=== PATIENT | male | born 1975 | race Caucasian/White ===

== ENCOUNTER 2020-12-25 17:46 | Inpatient (IN) | payer OTHER ==
[~2020-12-25 17:46] MED LIST: Iopamidol 370 76% 100 ML VIAL ONE
[2020-12-25] MEDS ORDERED: Boostrix 0.5 ML (Tdap) VIAL ONE (17:49)
[2020-12-25] MEDS ORDERED: Ondansetron PF 4 MG/2 ML Vial ONE (18:28)
[2020-12-25] MEDS ORDERED: Morphine 4 MG/ML VIAL ONE (18:28)
[2020-12-25 18:30] LABS: #Basophils 0.1 thou/uL (0.0-0.2); #Eosinphils 0.2 thou/uL (0.0-0.7); #Lymphocytes 4.6 thou/uL (1.20-3.40); #Monocytes 0.5 thou/uL (0.11-0.59); #Neutrophils 5.7 thou/uL (1.40-6.50); %Basophils 0.9 % (0.0-1.0); %Eosinophils 1.9 % (0.0-10.0); %Lymphocytes 41.9 % (21.0-51.0); %Monocytes 4.1 % (0.0-10.0); %Neutrophils 51.3 % (42.0-75.0); Mean Corpuscular HGB CONC 33.7 g/dL (32.0-36.0); Mean Corpuscular Hemoglobin 33.3 pg (27.0-31.0); Mean Corpuscular Volume 98.7 fL (78.0-98.0); Mean Platelet Volume 8.2 fL (7.4-10.4); Platelet Count 236 thou/uL (130-400); RBC Distribution Width 11.1 % (11.5-14.5); Red Blood Cell (RBC) Count 3.92 mill/uL (4.70-6.10)
[2020-12-25 18:35] LABS: PTT 28.9 sec (22.9-36.1); Prothrombin Time 13.1 sec (12.0-14.7)
[2020-12-25 18:49] LABS: ALT (SGPT) 116 U/L (8-55); AST (SGOT) 160 U/L (5-34); Albumin 3.5 g/dL (3.5-5.0); Alcohol 319 mg/dL (Less than 10); Alkaline Phosphatase 138 U/L (40-110); Anion Gap 23 mmol/L (10-20); BUN (Urea Nitrogen) 8 mg/dL (8.9-20.6); Bilirubin, Total 0.4 mg/dL (0.2-1.2); Calc. Creatinine Clearance 0 mL/min (70-130); Calcium 8.3 mg/dL (7.8-10.44); Carbon Dioxide 20 mmol/L (22-29); Chloride 102 mmol/L (98-107); Glucose 161 mg/dL (70-105); Potassium 3.5 mmol/L (3.5-5.1); Protein, Total 7.5 g/dL (6.0-8.3); Sodium 141 mmol/L (136-145)
[2020-12-25 20:12] LABS: Magnesium 1.7 mg/dL (1.6-2.6); Phosphorus 4.1 mg/dL (2.3-4.7)
[2020-12-25] MEDS ORDERED: CEFAZOLIN 2 GM in Premix Bag 1 BAG IVPB SCH (20:30)
[2020-12-25] MEDS ORDERED: Neomycin-Polymyxin 1 ML AMP ONE ×2 (20:51→21:30)
[2020-12-25] MEDS ORDERED: Dextrose 5% in Water 1,000 ML IV PRN (21:18)
[2020-12-25] MEDS ORDERED: Dextrose 50% Abboject 50 ML SYRINGE SLOW IVP PRN (21:18)
[2020-12-25] MEDS ORDERED: hydrALAZINE 20 MG/ML VIAL SLOW IVP PRN (21:18)
[2020-12-25] MEDS ORDERED: Ondansetron PF 4 MG/2 ML Vial IVP PRN (21:18)
[2020-12-25] MEDS ORDERED: Fentanyl 100 MCG/2 ML VIAL ONE (21:43)
[2020-12-25 21:52] LABS: SARS-CoV-2 NAA Rapid Test Not Detected (NotDetected)
[2020-12-25] MEDS ORDERED: PROPOFOL 200 MG/20 ML VIAL ONE (21:52)
[2020-12-25] MEDS ORDERED: Succinylcholine 200 MG/10 ml SYRINGE FS ONE (21:52)
[2020-12-25] MEDS ORDERED: Rocuronium Bromide 10 MG/ML (10ML VIAL) ONE (21:52)
[2020-12-25] MEDS ORDERED: Lidocaine 1% PF 5 ML VIAL ONE (21:52)
[2020-12-25] MEDS ORDERED: traMADol HCl 50 MG TAB PO PRN (21:55)
[2020-12-25] MEDS ORDERED: HYDROmorphone 2 MG/ML VIAL ONE (22:26)
[2020-12-25] MEDS ORDERED: SUGAMMADEX SODIUM 200 MG/2 ML VIAL ONE (22:28)
[2020-12-25] MEDS ORDERED: Naloxone HCl 0.4 mg/ml Vial ONE (23:00)
[2020-12-25] MEDS ORDERED: Meperidine HCl/PF 25 MG/ML VIAL ONE (23:21)
[2020-12-26] MEDS ORDERED: Magnesium 2 GM/50 ML 2 GM in Premix Bag 1 BAG IVPB SCH (00:15)
[2020-12-26] MEDS: Oxazepam 10 MG CAP PO SCH ×6 (00:52→20:06)
[2020-12-26] MEDS: Acetaminophen 325 MG TAB PO SCH ×5 (00:53→23:20)
[2020-12-26] MEDS: Potassium Chloride 20 MEQ in Premix Bag 1 BAG IVPB SCH ×2 (00:56→03:46)
[2020-12-26] MEDS: traMADol HCl 50 MG TAB PO PRN ×2 (01:02→08:05)
[2020-12-26] MEDS: CEFAZOLIN 2 GM in Premix Bag 1 BAG IVPB SCH ×3 (01:03→18:13)
[2020-12-26] MEDS: Sodium Chloride 0.9% 1,000 ML IV SCH ×3 (01:05→15:16)
[2020-12-26 01:52] VITALS: BMI 32.6
[2020-12-26] MEDS: Morphine 2 MG/ML VIAL SLOW IVP PRN ×2 (04:01→06:16)
[2020-12-26 04:39] LABS: Amphetamine Not Detected (NotDetected); Barbiturates Screen Not Detected (NotDetected); Benzodiazepine Screen Detected (NotDetected); Cocaine Metabolite Screen Not Detected (NotDetected); Medtox Control Line Valid? VALID (VALID); Medtox Reader # READER 4; Methadone Not Detected (NotDetected); Methamphetamine Not Detected (NotDetected); Opiate Screen Detected (NotDetected); Oxycodone Screen Not Detected (NotDetected); Phencyclidine (PCP) Not Detected (NotDetected); THC/Cannabinoid Screen Not Detected (NotDetected); Tricyclic Screen Not Detected (NotDetected)
[2020-12-26] MEDS: Ibuprofen 600 MG TAB PO SCH ×3 (05:31→21:11)
[2020-12-26 05:49] LABS: #Lymphocytes 1.4 thou/uL (1.20-3.40); #Monocytes 0.9 thou/uL (0.11-0.59); %Basophils 0.4 % (0.0-1.0); %Eosinophils 0.3 % (0.0-10.0); %Lymphocytes 13.8 % (21.0-51.0); %Monocytes 8.6 % (0.0-10.0); %Neutrophils 76.9 % (42.0-75.0); Hemoglobin 10.1 g/dL (14.0-18.0); Mean Corpuscular Hemoglobin 33.3 pg (27.0-31.0); Platelet Count 185 thou/uL (130-400); RBC Distribution Width 11.3 % (11.5-14.5); Red Blood Cell (RBC) Count 3.04 mill/uL (4.70-6.10); White Blood Cell (WBC) Count 10.4 thou/uL (4.8-10.8)
[2020-12-26 05:59] LABS: Phosphorus 4.1 mg/dL (2.3-4.7)
[2020-12-26 06:01] LABS: Anion Gap 21 mmol/L (10-20); BUN (Urea Nitrogen) 7 mg/dL (8.9-20.6); Calc. Creatinine Clearance 168 mL/min (70-130); Calcium 7.6 mg/dL (7.8-10.44); Carbon Dioxide 19 mmol/L (22-29); Chloride 99 mmol/L (98-107); Glucose 161 mg/dL (70-105); Potassium 4.7 mmol/L (3.5-5.1); Sodium 134 mmol/L (136-145)
[2020-12-26] MEDS: Polyethylene Glycol 3350 17 GM Packet PO SCH (08:52)
[2020-12-26] MEDS: Senokot S 8.6-50 MG TAB PO SCH ×2 (08:54→20:06)
[2020-12-26] MEDS: Famotidine/PF 20 mg/2ml Vial SLOW IVP SCH ×2 (08:54→20:06)
[2020-12-26] MEDS ORDERED: TETANUS AND DIPHTHERIA TOX/PF 0.5 ML DISP.SYRIN IM ONE (09:00)
[2020-12-26] MEDS ORDERED: FLU VACC QS2020-21(6MOS UP)/PF 60 MCG/0.5 ML SYRINGE IM ONE (09:00)
[2020-12-26] MEDS: Folic Acid 1 MG TAB PO SCH (10:09)
[2020-12-26] MEDS: Thiamine 100 MG TAB PO SCH (10:09)
[2020-12-26] MEDS ORDERED: traMADol HCl 50 MG TAB PO SCH (12:00)
[2020-12-26] MEDS: cloNIDine 0.1 MG TAB PO SCH ×3 (12:53→23:20)
[2020-12-26] MEDS: traMADol HCl 50 MG TAB PO SCH ×2 (14:13→20:04)
[2020-12-26] MEDS: Lactated Ringer's 1,000 ML IV SCH (20:07)
[2020-12-27] MEDS: traMADol HCl 50 MG TAB PO SCH ×3 (02:55→15:03)
[2020-12-27] MEDS: Oxazepam 10 MG CAP PO SCH ×4 (02:56→20:25)
[2020-12-27] MEDS: CEFAZOLIN 2 GM in Premix Bag 1 BAG IVPB SCH ×4 (02:56→23:42)
[2020-12-27] MEDS: Lactated Ringer's 1,000 ML IV SCH ×3 (02:56→23:47)
[2020-12-27] MEDS: Acetaminophen 325 MG TAB PO SCH ×3 (05:17→17:44)
[2020-12-27] MEDS: Ibuprofen 600 MG TAB PO SCH ×2 (05:17→15:03)
[2020-12-27] MEDS: cloNIDine 0.1 MG TAB PO SCH ×4 (05:19→23:42)
[2020-12-27] MEDS ORDERED: Midazolam HCl 2 mg/2 ml Vial ONE ×2 (08:47→09:09)
[2020-12-27] MEDS ORDERED: Fentanyl 250 MCG/5 ML VIAL ONE (08:47)
[2020-12-27] MEDS ORDERED: Lidocaine 2% Jelly 5 ML TUBE ONE (08:48)
[2020-12-27] MEDS ORDERED: Ondansetron PF 4 MG/2 ML Vial ONE (09:21)
[2020-12-27] MEDS ORDERED: Lidocaine 1% PF 5 ML VIAL ONE (09:21)
[2020-12-27] MEDS ORDERED: Glycopyrrolate 0.2 MG/ML 5 ML SYRINGE ONE (09:21)
[2020-12-27] MEDS ORDERED: Dexamethasone 20 MG/5 ML VIAL ONE (09:21)
[2020-12-27] MEDS ORDERED: PROPOFOL 200 MG/20 ML VIAL ONE (09:21)
[2020-12-27] MEDS ORDERED: PHENYLEPHRINE-NS 100 MCG/ML 10 ML SYRINGE ONE ×2 (09:21→11:15)
[2020-12-27] MEDS ORDERED: Rocuronium Bromide 10 MG/ML (10ML VIAL) ONE (09:21)
[2020-12-27] MEDS: Famotidine/PF 20 mg/2ml Vial SLOW IVP SCH ×2 (10:09→20:25)
[2020-12-27] MEDS: Folic Acid 1 MG TAB PO SCH (10:09)
[2020-12-27] MEDS: Multivit, Therapeutic 1 TAB PO SCH (10:09)
[2020-12-27] MEDS: Thiamine 100 MG TAB PO SCH (10:10)
[2020-12-27] MEDS: Polyethylene Glycol 3350 17 GM Packet PO SCH (10:10)
[2020-12-27] MEDS: Senokot S 8.6-50 MG TAB PO SCH ×2 (10:10→20:25)
[2020-12-27 11:11] LABS: Hemoglobin 8.3 g/dL (14.0-18.0)
[2020-12-27] MEDS ORDERED: Promethazine HCl 25 MG/ML VIAL SLOW IVP PRN (11:25)
[2020-12-27] MEDS ORDERED: Promethazine HCl 25 MG/ML VIAL IM PRN (11:25)
[2020-12-27] MEDS ORDERED: Ondansetron HCl/PF 4 MG/2 ML Vial IVP PRN (11:25)
[2020-12-27] MEDS ORDERED: Ketorolac Tromethamine 30 MG/ML VIAL IVP PRN (11:25)
[2020-12-27] MEDS ORDERED: HYDROmorphone 2 MG/ML VIAL SLOW IVP PRN (11:25)
[2020-12-27] MEDS ORDERED: HYDROmorphone 2 MG/ML VIAL ONE (13:27)
[2020-12-27] MEDS ORDERED: Promethazine HCl 25 MG/ML VIAL ONE (13:34)
[2020-12-27] MEDS ORDERED: Fentanyl 100 MCG/2 ML VIAL ONE (14:59)
[2020-12-27] MEDS: Morphine 2 MG/ML VIAL SLOW IVP PRN (16:29)
[2020-12-27] MEDS ORDERED: Naloxone HCl 0.4 mg/ml Vial IV PRN (18:45)
[2020-12-27] MEDS: HYDROmorphone 10 mg/100 ml CADD IVPB PRN (19:12)
[2020-12-28] MEDS: Oxazepam 10 MG CAP PO SCH ×4 (03:11→20:15)
[2020-12-28] MEDS: Lactated Ringer's 1,000 ML IV SCH (04:15)
[2020-12-28] MEDS: cloNIDine 0.1 MG TAB PO SCH ×4 (05:55→23:45)
[2020-12-28] MEDS ORDERED: Acetaminophen 325 MG TAB PO PRN (06:05)
[2020-12-28 06:16] LABS: Anion Gap 14 mmol/L (10-20); BUN (Urea Nitrogen) 13 mg/dL (8.9-20.6); Calc. Creatinine Clearance 126 mL/min (70-130); Calcium 6.8 mg/dL (7.8-10.44); Carbon Dioxide 23 mmol/L (22-29); Chloride 94 mmol/L (98-107); Glucose 182 mg/dL (70-105); Magnesium 1.5 mg/dL (1.6-2.6); Phosphorus 2.7 mg/dL (2.3-4.7); Potassium 4.8 mmol/L (3.5-5.1); Sodium 126 mmol/L (136-145)
[2020-12-28 06:46] LABS: #Monocytes 0.9 thou/uL (0.11-0.59); #Neutrophils 9.6 thou/uL (1.40-6.50); %Basophils 0.2 % (0.0-1.0); %Eosinophils 0.1 % (0.0-10.0); %Lymphocytes 8.3 % (21.0-51.0); %Monocytes 8.2 % (0.0-10.0); %Neutrophils 83.2 % (42.0-75.0); Hemoglobin 7.8 g/dL (14.0-18.0); Mean Corpuscular HGB CONC 34.8 g/dL (32.0-36.0); Mean Corpuscular Hemoglobin 33.2 pg (27.0-31.0); Mean Corpuscular Volume 95.5 fL (78.0-98.0); Mean Platelet Volume 8.3 fL (7.4-10.4); Platelet Count 116 thou/uL (130-400); Platelet Morphology Comment Appears Adequate; Red Blood Cell (RBC) Count 2.34 mill/uL (4.70-6.10); White Blood Cell (WBC) Count 11.5 thou/uL (4.8-10.8)
[2020-12-28] MEDS ORDERED: Magnesium 2 GM/50 ML 2 GM in Premix Bag 1 BAG IVPB SCH (07:00)
[2020-12-28] MEDS: XYZAL PO SCH (08:08)
[2020-12-28] MEDS: Senokot S 8.6-50 MG TAB PO SCH ×2 (08:09→20:15)
[2020-12-28] MEDS: Polyethylene Glycol 3350 17 GM Packet PO SCH (08:10)
[2020-12-28] MEDS: Multivit, Therapeutic 1 TAB PO SCH (08:10)
[2020-12-28] MEDS: Folic Acid 1 MG TAB PO SCH (08:10)
[2020-12-28] MEDS: Famotidine/PF 20 mg/2ml Vial SLOW IVP SCH ×2 (08:11→20:15)
[2020-12-28] MEDS: Thiamine 100 MG TAB PO SCH (08:11)
[2020-12-28] MEDS ORDERED: Sodium Chloride 0.9% 1,000 ML IV SCH (10:15)
[2020-12-28] MEDS ORDERED: Hydrocortisone Sod Succ/PF 100 mg/2 ml Vial IVP SCH (12:15)
[2020-12-28] MEDS: Insulin Regular 300 UNITS/3 ML VIAL SC PRN ×3 (13:07→21:24)
[2020-12-28] MEDS ORDERED: diphenhydrAMINE 25 MG CAP PO PRN (13:55)
[2020-12-28] MEDS ORDERED: Dicyclomine 10 MG CAP PO SCH (17:00)
[2020-12-28] MEDS: HYDROmorphone 10 mg/100 ml CADD IVPB PRN (18:52)
[2020-12-28] MEDS: Hydrocortisone Sod Succ/PF 100 mg/2 ml Vial IVP SCH (21:23)
[2020-12-29] MEDS: Oxazepam 10 MG CAP PO SCH ×4 (02:31→22:08)
[2020-12-29] MEDS: cloNIDine 0.1 MG TAB PO SCH ×4 (05:49→23:40)
[2020-12-29] MEDS: Hydrocortisone Sod Succ/PF 100 mg/2 ml Vial IVP SCH ×3 (05:49→22:07)
[2020-12-29] MEDS: Insulin Regular 300 UNITS/3 ML VIAL SC PRN ×4 (05:54→22:08)
[2020-12-29] MEDS: Acetaminophen 325 MG TAB PO SCH ×4 (07:16→23:28)
[2020-12-29] MEDS: Ibuprofen 200 MG TAB PO SCH ×4 (07:17→23:29)
[2020-12-29] MEDS ORDERED: CEFAZOLIN 2 GM in Premix Bag 1 BAG IVPB SCH (07:30)
[2020-12-29 07:44] LABS: Anion Gap 12 mmol/L (10-20); BUN (Urea Nitrogen) 12 mg/dL (8.9-20.6); Calc. Creatinine Clearance 168 mL/min (70-130); Calcium 7.2 mg/dL (7.8-10.44); Carbon Dioxide 26 mmol/L (22-29); Chloride 96 mmol/L (98-107); Glucose 161 mg/dL (70-105); Phosphorus 1.8 mg/dL (2.3-4.7); Potassium 4.2 mmol/L (3.5-5.1); Sodium 130 mmol/L (136-145)
[2020-12-29 08:20] LABS: #Neutrophils 6.7 thou/uL (1.40-6.50); %Basophils 0.3 % (0.0-1.0); %Eosinophils 0.1 % (0.0-10.0); %Lymphocytes 10.9 % (21.0-51.0); %Monocytes 11.9 % (0.0-10.0); %Neutrophils 76.8 % (42.0-75.0); Hemoglobin 6.9 g/dL (14.0-18.0); MDiff Complete? YES; Mean Corpuscular HGB CONC 34.7 g/dL (32.0-36.0); Mean Corpuscular Hemoglobin 33.4 pg (27.0-31.0); Mean Corpuscular Volume 96.1 fL (78.0-98.0); Mean Platelet Volume 7.8 fL (7.4-10.4); Platelet Count 92 thou/uL (130-400); Platelet Morphology Comment Appears Decreased; Polychromasia SLIGHT = 2-3 cells (100X) (0-2/hpf); Red Blood Cell (RBC) Count 2.08 mill/uL (4.70-6.10); White Blood Cell (WBC) Count 8.8 thou/uL (4.8-10.8)
[2020-12-29] MEDS: Folic Acid 1 MG TAB PO SCH (08:55)
[2020-12-29] MEDS: Sodium Phosphate 30 MMOL in Sodium Chloride 0.9% 250 ML 250 ML IVPB SCH (08:55)
[2020-12-29] MEDS: Ferrous Sulfate 325 MG TAB PO SCH ×2 (08:56→17:42)
[2020-12-29] MEDS: Cholecalciferol 1,000 UNITS (25 MCG) TAB PO SCH (08:56)
[2020-12-29] MEDS: Ascorbic Acid 500 mg Chewable Tablet PO SCH ×2 (08:57→22:07)
[2020-12-29] MEDS: Thiamine 100 MG TAB PO SCH (08:58)
[2020-12-29] MEDS: Multivit, Therapeutic 1 TAB PO SCH (08:58)
[2020-12-29] MEDS: Famotidine/PF 20 mg/2ml Vial SLOW IVP SCH ×2 (08:59→22:07)
[2020-12-29] MEDS ORDERED: Non-Formulary Item 1 EACH (Levocetirizine Dihydrochloride [Xyzal] 5 MG Tablet) PO SCH (09:00)
[2020-12-29] MEDS: XYZAL PO SCH (09:02)
[2020-12-29] MEDS: Senokot S 8.6-50 MG TAB PO SCH ×2 (09:03→22:26)
[2020-12-29] MEDS: Polyethylene Glycol 3350 17 GM Packet PO SCH (09:03)
[2020-12-29] MEDS ORDERED: Calcium Chloride 1 GM/10 ML Abboject SYRINGE IVP SCH (10:00)
[2020-12-29] MEDS: traMADol HCl 50 MG TAB PO SCH ×3 (12:34→23:29)
[2020-12-29] MEDS: traMADol HCl 50 MG TAB PO PRN (22:09)
[2020-12-30] MEDS: Oxazepam 10 MG CAP PO SCH ×3 (04:06→15:19)
[2020-12-30] MEDS: Ibuprofen 200 MG TAB PO SCH ×3 (05:54→17:24)
[2020-12-30] MEDS: Acetaminophen 325 MG TAB PO SCH ×3 (05:54→17:24)
[2020-12-30] MEDS: traMADol HCl 50 MG TAB PO SCH ×2 (05:54→14:09)
[2020-12-30] MEDS: cloNIDine 0.1 MG TAB PO SCH ×3 (05:55→17:25)
[2020-12-30] MEDS: Insulin Regular 300 UNITS/3 ML VIAL SC PRN ×2 (05:55→21:40)
[2020-12-30] MEDS: Hydrocortisone Sod Succ/PF 100 mg/2 ml Vial IVP SCH ×3 (05:55→21:24)
[2020-12-30 06:31] LABS: #Lymphocytes 0.8 thou/uL (1.20-3.40); #Monocytes 0.8 thou/uL (0.11-0.59); #Neutrophils 5.5 thou/uL (1.40-6.50); %Basophils 0.1 % (0.0-1.0); %Eosinophils 0.2 % (0.0-10.0); %Lymphocytes 11.5 % (21.0-51.0); %Neutrophils 77.2 % (42.0-75.0); Hemoglobin 7.7 g/dL (14.0-18.0); Mean Corpuscular HGB CONC 34.7 g/dL (32.0-36.0); Mean Corpuscular Hemoglobin 33.2 pg (27.0-31.0); Mean Corpuscular Volume 95.6 fL (78.0-98.0); Mean Platelet Volume 8.1 fL (7.4-10.4); Platelet Count 106 thou/uL (130-400); RBC Distribution Width 15.2 % (11.5-14.5); Red Blood Cell (RBC) Count 2.31 mill/uL (4.70-6.10); White Blood Cell (WBC) Count 7.1 thou/uL (4.8-10.8)
[2020-12-30 06:46] LABS: Anion Gap 12 mmol/L (10-20); BUN (Urea Nitrogen) 17 mg/dL (8.9-20.6); Calc. Creatinine Clearance 168 mL/min (70-130); Calcium 7.8 mg/dL (7.8-10.44); Carbon Dioxide 27 mmol/L (22-29); Chloride 98 mmol/L (98-107); Glucose 202 mg/dL (70-105); Magnesium 2.3 mg/dL (1.6-2.6); Phosphorus 2.8 mg/dL (2.3-4.7); Potassium 4.1 mmol/L (3.5-5.1); Sodium 133 mmol/L (136-145)
[2020-12-30] MEDS: Ferrous Sulfate 325 MG TAB PO SCH ×3 (10:24→21:25)
[2020-12-30] MEDS: Ascorbic Acid 500 mg Chewable Tablet PO SCH ×2 (10:24→21:25)
[2020-12-30] MEDS: Famotidine/PF 20 mg/2ml Vial SLOW IVP SCH ×2 (10:24→21:23)
[2020-12-30] MEDS: Cholecalciferol 1,000 UNITS (25 MCG) TAB PO SCH (10:24)
[2020-12-30] MEDS: Folic Acid 1 MG TAB PO SCH (10:25)
[2020-12-30] MEDS: Polyethylene Glycol 3350 17 GM Packet PO SCH (10:25)
[2020-12-30] MEDS: Thiamine 100 MG TAB PO SCH (10:25)
[2020-12-30] MEDS: Multivit, Therapeutic 1 TAB PO SCH (10:25)
[2020-12-30] MEDS: XYZAL PO SCH (10:25)
[2020-12-30] MEDS: Senokot S 8.6-50 MG TAB PO SCH ×2 (10:25→21:24)
[2020-12-30] MEDS ORDERED: Fentanyl 100 MCG/2 ML VIAL ONE ×4 (12:03→14:39)
[2020-12-30] MEDS ORDERED: Promethazine HCl 25 MG/ML VIAL SLOW IVP PRN (12:15)
[2020-12-30] MEDS ORDERED: Promethazine HCl 25 MG/ML VIAL IM PRN ×2 (12:15→19:45)
[2020-12-30] MEDS ORDERED: HYDROmorphone 2 MG/ML VIAL SLOW IVP PRN (12:15)
[2020-12-30] MEDS ORDERED: Meperidine HCl/PF 25 MG/ML VIAL SLOW IVP PRN (12:15)
[2020-12-30] MEDS ORDERED: Lidocaine 1% PF 5 ML VIAL ONE (12:24)
[2020-12-30] MEDS ORDERED: Rocuronium Bromide 10 MG/ML (10ML VIAL) ONE (12:24)
[2020-12-30] MEDS ORDERED: PROPOFOL 200 MG/20 ML VIAL ONE (12:24)
[2020-12-30] MEDS ORDERED: Succinylcholine 200 MG/10 ml SYRINGE FS ONE (12:24)
[2020-12-30] MEDS ORDERED: HYDROmorphone 0.5 MG/0.5 ML SYRINGE ONE (14:40)
[2020-12-30] MEDS: traMADol HCl 50 MG TAB PO PRN (15:17)
[2020-12-30] MEDS: Morphine 4 MG/ML VIAL SLOW IVP PRN ×2 (17:25→19:25)
[2020-12-30] MEDS: Sodium Phosphate 30 MMOL in Sodium Chloride 0.9% 250 ML 250 ML IVPB SCH (18:36)
[2020-12-30] MEDS ORDERED: diphenhydrAMINE 25 MG CAP PO PRN (19:45)
[2020-12-30] MEDS ORDERED: Ondansetron PF 4 MG/2 ML Vial IVP PRN (19:45)
[2020-12-30] MEDS ORDERED: Ketorolac Tromethamine 30 MG/ML VIAL IVP PRN ×2 (19:45)
[2020-12-30] MEDS ORDERED: Naloxone HCl 0.4 mg/ml Vial IV PRN (19:45)
[2020-12-30] MEDS ORDERED: Zolpidem Tartrate 5 MG TAB PO PRN (19:45)
[2020-12-30] MEDS ORDERED: diphenhydrAMINE 50 MG/ML VIAL IM/IV PRN (19:45)
[2020-12-30] MEDS ORDERED: HYDROmorphone 10 mg/100 ml CADD IVPB PRN (20:00)
[2020-12-30] MEDS ORDERED: traMADol HCl 50 MG TAB PO SCH (21:00)
[2020-12-30] MEDS: CEFAZOLIN 2 GM in Premix Bag 1 BAG IVPB SCH (21:23)
[2020-12-30] MEDS: Aspirin 81 mg Enteric Coated Tablet PO SCH (21:25)
[2020-12-30] MEDS ORDERED: Ketorolac Tromethamine 30 MG/ML VIAL IVP SCH ×2 (23:59)
[2020-12-31] MEDS: cloNIDine 0.1 MG TAB PO SCH ×4 (00:29→17:47)
[2020-12-31] MEDS: Ibuprofen 200 MG TAB PO SCH ×2 (00:29→05:42)
[2020-12-31] MEDS: Acetaminophen 325 MG TAB PO SCH ×4 (00:30→17:46)
[2020-12-31] MEDS: CEFAZOLIN 2 GM in Premix Bag 1 BAG IVPB SCH (04:12)
[2020-12-31] MEDS: Insulin Regular 300 UNITS/3 ML VIAL SC PRN ×2 (05:41→17:47)
[2020-12-31] MEDS: Hydrocortisone Sod Succ/PF 100 mg/2 ml Vial IVP SCH (05:41)
[2020-12-31 06:18] LABS: Hemoglobin 8.8 g/dL (14.0-18.0); Mean Corpuscular HGB CONC 34.1 g/dL (32.0-36.0); Mean Corpuscular Hemoglobin 32.5 pg (27.0-31.0); Mean Corpuscular Volume 95.4 fL (78.0-98.0); Mean Platelet Volume 8.4 fL (7.4-10.4); Platelet Count 142 thou/uL (130-400); RBC Distribution Width 15.6 % (11.5-14.5); Red Blood Cell (RBC) Count 2.72 mill/uL (4.70-6.10); White Blood Cell (WBC) Count 7.8 thou/uL (4.8-10.8)
[2020-12-31 06:27] LABS: Anion Gap 12 mmol/L (10-20); BUN (Urea Nitrogen) 17 mg/dL (8.9-20.6); Calc. Creatinine Clearance 154 mL/min (70-130); Calcium 7.4 mg/dL (7.8-10.44); Carbon Dioxide 28 mmol/L (22-29); Chloride 95 mmol/L (98-107); Glucose 259 mg/dL (70-105); Potassium 4.1 mmol/L (3.5-5.1); Sodium 131 mmol/L (136-145)
[2020-12-31 06:34] LABS: Band 9 % (5-11); Lymphocytes 8 % (21-51); MDiff Complete? YES; Metamyelocyte 1 % (0-0); Monocytes 14 % (0-10); Myelocyte 2 % (0-0); Neutrophil 66 % (42-75)
[2020-12-31] MEDS: Thiamine 100 MG TAB PO SCH (08:43)
[2020-12-31] MEDS: Polyethylene Glycol 3350 17 GM Packet PO SCH (08:43)
[2020-12-31] MEDS: Folic Acid 1 MG TAB PO SCH (08:44)
[2020-12-31] MEDS: Senokot S 8.6-50 MG TAB PO SCH ×2 (08:44→19:48)
[2020-12-31] MEDS: Ascorbic Acid 500 mg Chewable Tablet PO SCH ×2 (08:44→19:46)
[2020-12-31] MEDS: Cholecalciferol 1,000 UNITS (25 MCG) TAB PO SCH (08:44)
[2020-12-31] MEDS: Multivit, Therapeutic 1 TAB PO SCH (08:44)
[2020-12-31] MEDS: Ferrous Sulfate 325 MG TAB PO SCH ×2 (08:44→19:46)
[2020-12-31] MEDS: Aspirin 81 mg Enteric Coated Tablet PO SCH (08:47)
[2020-12-31] MEDS: XYZAL PO SCH (08:48)
[2020-12-31] MEDS: Famotidine/PF 20 mg/2ml Vial SLOW IVP SCH (08:52)
[2020-12-31] MEDS: Enoxaparin Sodium 30 MG/0.3 ML SYRINGE SC SCH ×2 (08:54→19:47)
[2020-12-31] MEDS: Ketorolac Tromethamine 30 MG/ML VIAL IVP SCH ×3 (08:54→21:19)
[2020-12-31] MEDS: Famotidine 20 MG TAB PO SCH ×2 (08:59→19:47)
[2020-12-31] MEDS: traMADol HCl 50 MG TAB PO SCH ×2 (12:27→17:46)
[2021-01-01] MEDS: cloNIDine 0.1 MG TAB PO SCH ×5 (00:03→23:27)
[2021-01-01] MEDS: traMADol HCl 50 MG TAB PO SCH ×5 (00:03→23:28)
[2021-01-01] MEDS: Acetaminophen 325 MG TAB PO SCH ×5 (00:03→23:28)
[2021-01-01] MEDS: Ketorolac Tromethamine 30 MG/ML VIAL IVP SCH (03:57)
[2021-01-01] MEDS: Cholecalciferol 1,000 UNITS (25 MCG) TAB PO SCH (08:35)
[2021-01-01] MEDS: Ascorbic Acid 500 mg Chewable Tablet PO SCH ×2 (08:35→20:46)
[2021-01-01] MEDS: Thiamine 100 MG TAB PO SCH (08:35)
[2021-01-01] MEDS: Famotidine 20 MG TAB PO SCH ×2 (08:36→20:46)
[2021-01-01] MEDS: Senokot S 8.6-50 MG TAB PO SCH ×2 (08:36→20:51)
[2021-01-01] MEDS: Ferrous Sulfate 325 MG TAB PO SCH ×2 (08:36→20:46)
[2021-01-01] MEDS: Polyethylene Glycol 3350 17 GM Packet PO SCH (08:36)
[2021-01-01] MEDS: XYZAL PO SCH (08:36)
[2021-01-01] MEDS: Folic Acid 1 MG TAB PO SCH (08:36)
[2021-01-01] MEDS: Multivit, Therapeutic 1 TAB PO SCH (08:36)
[2021-01-01] MEDS: Enoxaparin Sodium 30 MG/0.3 ML SYRINGE SC SCH ×2 (08:37→20:50)
[2021-01-01] MEDS ORDERED: Morphine 2 MG/ML VIAL SLOW IVP SCH (09:00)
[2021-01-01] MEDS: Ibuprofen 200 MG TAB PO SCH ×3 (11:20→23:27)
[2021-01-01] MEDS: Cephalexin 250 MG CAP PO SCH ×3 (11:21→23:28)
[2021-01-01] MEDS: Gabapentin 300 MG CAP PO SCH ×2 (15:21→20:46)
[2021-01-01] MEDS: Cyclobenzaprine 10 MG TAB PO PRN (15:21)
[2021-01-02] MEDS: cloNIDine 0.1 MG TAB PO SCH ×3 (05:38→17:32)
[2021-01-02] MEDS: Cephalexin 250 MG CAP PO SCH ×3 (05:38→17:32)
[2021-01-02] MEDS: Ibuprofen 200 MG TAB PO SCH ×3 (05:39→17:32)
[2021-01-02] MEDS: traMADol HCl 50 MG TAB PO SCH ×3 (05:39→17:33)
[2021-01-02] MEDS: Acetaminophen 325 MG TAB PO SCH ×3 (05:39→17:31)
[2021-01-02] MEDS: Gabapentin 300 MG CAP PO SCH ×3 (08:16→21:21)
[2021-01-02] MEDS: Thiamine 100 MG TAB PO SCH (08:17)
[2021-01-02] MEDS: Famotidine 20 MG TAB PO SCH (08:17)
[2021-01-02] MEDS: Multivit, Therapeutic 1 TAB PO SCH (08:17)
[2021-01-02] MEDS: Folic Acid 1 MG TAB PO SCH (08:17)
[2021-01-02] MEDS: Ferrous Sulfate 325 MG TAB PO SCH ×2 (08:18→21:24)
[2021-01-02] MEDS: Enoxaparin Sodium 30 MG/0.3 ML SYRINGE SC SCH ×2 (08:18→21:25)
[2021-01-02] MEDS: Ascorbic Acid 500 mg Chewable Tablet PO SCH ×2 (08:18→21:24)
[2021-01-02] MEDS: Senokot S 8.6-50 MG TAB PO SCH (08:18)
[2021-01-02] MEDS: Cholecalciferol 1,000 UNITS (25 MCG) TAB PO SCH (08:18)
[2021-01-02] MEDS: Polyethylene Glycol 3350 17 GM Packet PO SCH (08:18)
[2021-01-02] MEDS: Cyclobenzaprine 10 MG TAB PO PRN (08:23)
[2021-01-02] MEDS: XYZAL PO SCH (09:23)
[2021-01-02 23:09] LABS: SARS-CoV-2 PCR by NAA Not Detected (NotDetected)
[2021-01-03] MEDS: traMADol HCl 50 MG TAB PO SCH ×4 (00:01→17:37)
[2021-01-03] MEDS: Ibuprofen 200 MG TAB PO SCH ×4 (00:03→17:38)
[2021-01-03] MEDS: Cephalexin 250 MG CAP PO SCH ×4 (00:03→17:38)
[2021-01-03] MEDS: Acetaminophen 325 MG TAB PO SCH ×4 (00:04→17:38)
[2021-01-03] MEDS: cloNIDine 0.1 MG TAB PO SCH ×4 (00:04→17:38)
[2021-01-03] MEDS: Folic Acid 1 MG TAB PO SCH (08:58)
[2021-01-03] MEDS: Cholecalciferol 1,000 UNITS (25 MCG) TAB PO SCH (08:59)
[2021-01-03] MEDS: Gabapentin 300 MG CAP PO SCH ×2 (08:59→13:53)
[2021-01-03] MEDS: Ferrous Sulfate 325 MG TAB PO SCH (09:00)
[2021-01-03] MEDS: Thiamine 100 MG TAB PO SCH (09:00)
[2021-01-03] MEDS: Ascorbic Acid 500 mg Chewable Tablet PO SCH (09:00)
[2021-01-03] MEDS: Multivit, Therapeutic 1 TAB PO SCH (09:00)
[2021-01-03] MEDS: Enoxaparin Sodium 30 MG/0.3 ML SYRINGE SC SCH (09:00)
[2021-01-03] MEDS ORDERED: Lisinopril 10 MG TAB PO SCH (09:00)
[2021-01-03] MEDS: XYZAL PO SCH (09:01)
[2021-01-03] MEDS: Polyethylene Glycol 3350 17 GM Packet PO SCH (09:02)
[2021-01-03 15:53] VITALS: TEMP 97.7
[2021-01-03 17:39] VITALS: BP 153/89
== END 2021-01-03 17:47 | DRG 958 ==
LOC: ERS 17:46 → SDC/OP 21:40 → SURG A 22:00
PROVIDERS: ADMIT Surgery; ATTEND Surgery
PROC: 0QSH05Z Reposition Left Tibia with External Fixation Device, Open Approach (ICD-10-PCS; principal; 2020-12-25)
PROC: 0QS5XZZ Reposition Left Acetabulum, External Approach (ICD-10-PCS; 2020-12-25)
PROC: 0QS504Z Reposition Left Acetabulum with Internal Fixation Device, Open Approach (ICD-10-PCS; 2020-12-27)
PROC: 0QDH0ZZ Extraction of Left Tibia, Open Approach (ICD-10-PCS; 2020-12-27)
PROC: 30233N1 Transfusion of Nonautologous Red Blood Cells into Peripheral Vein, Percutaneous Approach (ICD-10-PCS; 2020-12-27)
PROC: 0QPH05Z Removal of External Fixation Device from Left Tibia, Open Approach (ICD-10-PCS; 2020-12-30)
PROC: 0QSH06Z Reposition Left Tibia with Intramedullary Internal Fixation Device, Open Approach (ICD-10-PCS; 2020-12-30)
DX: S82.202B Unspecified fracture of shaft of left tibia, initial encounter for open fracture type I or II (principal); S32.452A Displaced transverse fracture of left acetabulum, initial encounter for closed fracture; Z20.822 Contact with and (suspected) exposure to COVID-19; Z23 Encounter for immunization; S32.029A Unspecified fracture of second lumbar vertebra, initial encounter for closed fracture; S32.455A Nondisplaced transverse fracture of left acetabulum, initial encounter for closed fracture; S32.592A Other specified fracture of left pubis, initial encounter for closed fracture; S32.039A Unspecified fracture of third lumbar vertebra, initial encounter for closed fracture; S32.049A Unspecified fracture of fourth lumbar vertebra, initial encounter for closed fracture; S32.10XA Unspecified fracture of sacrum, initial encounter for closed fracture; E87.1 Hypo-osmolality and hyponatremia; D62 Acute posthemorrhagic anemia; F10.129 Alcohol abuse with intoxication, unspecified; E83.39 Other disorders of phosphorus metabolism; E11.9 Type 2 diabetes mellitus without complications; I10 Essential (primary) hypertension; Y90.8 Blood alcohol level of 240 mg/100 ml or more; S82.102 Unspecified fracture of upper end of left tibia; S82.46 Segmental fracture of shaft of fibula; V47.5XXA Car driver injured in collision with fixed or stationary object in traffic accident, initial encounter; Y92.488 Other paved roadways as the place of occurrence of the external cause; Y99.9 Unspecified external cause status
CPT/HCPCS: 36415; 36416; 36430; 70450; 71045; 71260; 72125; 72170; 72190; 74177; 76000; 76377; 80048; 80053; 80306; 80307; 82533; 83735; 83880; 84100; 85014; 85018; 85025; 85610; 85730; 86850; 86900; 86901; 87635; 90471; 90715; 94640; 96374; 96375; C1713; C1769; G0390; J0690; J1100; J1170; J1650; J1720; J1815; J1885; J2175; J2250; J2270; J2310; J2405; J2550; J2704; J3010; J3475; J3480; J7050; J7620; P9016; Q0163; Q9967; S0028; U0002; U0003; U0005

== ENCOUNTER 2021-07-28 12:06 | Outpatient (CLI) | payer OTHER ==
[2021-07-28 23:45] LABS: SARS-CoV-2 PCR by NAA Not Detected (NotDetected)
== END 2021-07-28 12:07 | disposition home or self-care (01) ==
LOC: LABBT 12:06
PROVIDERS: ATTEND Orthopaedic Surgery
DX: Z01.812 Encounter for preprocedural laboratory examination (principal); Z20.822 Contact with and (suspected) exposure to COVID-19
CPT/HCPCS: U0003; U0005

== ENCOUNTER 2021-07-31 10:45 | Day surgery (SDC) | payer OTHER ==
[2021-07-30 11:00] VITALS: BMI 28.1
[2021-07-31] MEDS ORDERED: Midazolam HCl 2 mg/2 ml Vial ONE (11:26)
[2021-07-31] MEDS ORDERED: Fentanyl 100 MCG/2 ML VIAL ONE (11:26)
[2021-07-31] MEDS ORDERED: ceFAZolin 2 GM/DEX 5% 100 ML BAG ONE (11:40)
[2021-07-31] MEDS ORDERED: HYDROmorphone 0.5 MG/0.5 ML SYRINGE ONE (12:14)
[2021-07-31] MEDS ORDERED: Ketorolac Tromethamine 30 MG/ML VIAL ONE (12:48)
[2021-07-31] MEDS ORDERED: Dexamethasone 20 MG/5 ML VIAL ONE (12:48)
[2021-07-31] MEDS ORDERED: Ondansetron PF 4 MG/2 ML Vial ONE (12:48)
[2021-07-31] MEDS ORDERED: PROPOFOL 200 MG/20 ML VIAL ONE (12:48)
[2021-07-31] MEDS ORDERED: Lidocaine 1% PF 5 ML VIAL ONE (12:48)
[2021-07-31] MEDS ORDERED: Bupivacaine PF 0.5% 30 ML VIAL ONE (14:04)
[2021-07-31] MEDS ORDERED: EPINEPHrine 1 MG/ML AMP ONE (14:04)
[2021-07-31] MEDS ORDERED: Metoprolol Tartrate 5 MG/5 ML VIAL ONE (14:47)
[2021-07-31] MEDS ORDERED: HYDROcodone/Acetaminophen 5/325 mg Tablet ONE (16:16)
== END 2021-07-31 17:30 | disposition home or self-care (01) ==
LOC: SDC 10:45
PROVIDERS: ATTEND Orthopaedic Surgery
PROC: 0QSH04Z Reposition Left Tibia with Internal Fixation Device, Open Approach (ICD-10-PCS; principal; 2021-07-31)
DX: S82.222 Displaced transverse fracture of shaft of left tibia (principal); J45.909 Unspecified asthma, uncomplicated; E78.00 Pure hypercholesterolemia, unspecified; E11.9 Type 2 diabetes mellitus without complications; I10 Essential (primary) hypertension; Z87.891 Personal history of nicotine dependence; Z79.899 Other long term (current) drug therapy; V89.2XXD Person injured in unspecified motor-vehicle accident, traffic, subsequent encounter
CPT/HCPCS: 76000; C1713; C1769; J0171; J1100; J1170; J1885; J2250; J2405; J2704; J3010; S0020